=== PATIENT | female | born 1985 | race Caucasian/White ===

== ENCOUNTER 2017-01-12 16:20 | Emergency (ER) | payer BC ==
[2017-01-12] MEDS ORDERED: TRAMADOL HYDROC50 MG PO (16:32)
[2017-01-12] MEDS ORDERED: MOTRIN800 MG PO (16:32)
[2017-01-12 17:02] VITALS: BP 138/70
== END 2017-01-12 17:14 | disposition home or self-care (01) | DRG 563 ==
LOC: ED 16:20
DX: S93.602A Unspecified sprain of left foot, initial encounter (principal); W01.0XXA Fall on same level from slipping, tripping and stumbling without subsequent striking against object, initial encounter; Y92.512 Supermarket, store or market as the place of occurrence of the external cause

== ENCOUNTER 2018-01-26 12:56 | Emergency (ER) | payer BC ==
[~2018-01-26] VITALS: Ht 157.5 cm; Wt 75.5 kg
[~2018-01-26 12:56] MED LIST: MOTRIN800 MG PO; TRAMADOL HYDROC50 MG PO
[2018-01-26] MEDS ORDERED: GABAPENTIN100 MG PO (13:05)
[2018-01-26 13:12] VITALS: BP 157/88
== END 2018-01-26 13:50 | disposition home or self-care (01) | DRG 556 ==
LOC: ED 12:56
PROC: 2W3DX1Z Immobilization of Left Lower Arm using Splint (ICD-10-PCS; principal; 2018-01-26)
DX: M25.832 Other specified joint disorders, left wrist (principal); M25.432 Effusion, left wrist

== ENCOUNTER → 2018-12-16 | Outpatient (REF) | payer BC ==
[~2018-12-16] MED LIST changes: +GABAPENTIN100 MG PO
== END | disposition home or self-care (01) | DRG 195 ==
LOC: DI 10:24
PROVIDERS: ATTEND Physician Assistant Medical
DX: J18.9 Pneumonia, unspecified organism (principal)